=== PATIENT | male | born 1960 | race African-American/Black ===

== ENCOUNTER 2017-04-19 12:48 | Inpatient (IN) | payer OTHER ==
[~2017-04-19] VITALS: Ht 177.8 cm; Wt 95.3 kg
[~2017-04-19 12:48] MED LIST: DIVA500E13 PO; LEVEMIR SUBQ; METF500T4 PO; SYN.05 PO
[2017-04-19 13:31] VITALS: BP 140/79
[2017-04-19] MEDS ORDERED: NACL 0.9% 1,000 ML IV SCH (13:38)
[2017-04-19 13:57] LABS: BASOPHILS # (AUTO) 0.1 K/uL (0.00-0.22); EOSINOPHILS # (AUTO) 0.1 K/uL (0-0.4); EOSINOPHILS % (AUTO) 1.6 % (0.0-4.0); HEMATOCRIT 44.3 % (36-52); HEMOGLOBIN 14.4 g/dL (12.0-18.0); LYMPHOCYTES # (AUTO) 1.2 K/uL (2.0-11.5); LYMPHOCYTES % (AUTO) 15.5 % (20.5-51.1); MEAN CORPUSCULAR HEMOGLOBIN 27 pg (27-31); MEAN CORPUSCULAR HGB CONC 32 g/dL (33-37); MEAN CORPUSCULAR VOLUME 82 fL (80-94); MONOCYTES # (AUTO) 1.1 K/uL (0.8-1.0); MONOCYTES % (AUTO) 14.4 % (1.7-9.3); NEUTROPHILS # (AUTO) 5.4 K/uL (1.8-7.7); NEUTROPHILS % (AUTO) 67.5 % (42.2-75.2); PLATELET COUNT (AUTO) 249 K/uL (140-450); RED BLOOD CELL COUNT(AUTO) 5.41 MIL/uL (4.20-6.10); RED CELL DISTRIBUTION WIDTH 14.6 % (11.6-13.7); WHITE BLOOD COUNT (AUTO) 7.9 K/uL (4.8-10.8)
[2017-04-19 14:10] LABS: ANION GAP 13.3 (8-16); CALCIUM 9.4 mg/dL (8.5-10.1); CARBON DIOXIDE 27.8 mmol/L (21-32); CREATININE 1.5 mg/dL (0.7-1.3); POTASSIUM 4.1 mmol/L (3.5-5.1)
[2017-04-19 14:11] LABS: AMYLASE 49 U/L (25-115); LIPASE 129 U/L (73-393)
[2017-04-19 14:18] LABS: TOTAL BILIRUBIN 0.5 mg/dL (0.0-1.0)
[2017-04-19 14:21] LABS: INR 1.1 (0.8-1.2); PARTIAL THROMBOPLASTIN TIME 31.2 secs (22-35.6); PROTHROMBIN TIME 11.1 secs (10.8-13.4)
--- NOTE | 2017-04-19 16:05 | NUR ---
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 ER X 2 DAYS AGO RX DOXYCYCLINE 100MG BID HX---PARANOIA SCHIZOPHRENIA, DM, RX---GLIPIZIDE 10MG BID, LEVOTHYROXINE 50MCG AM, QUETIAPINE 20MG TID, DEPAKOTE 500MG TID, CLONAZEPAM 0.5MG TID, METFORMIN 500MG TID, ZOLPIDEM 5MG, ;. DENIES N/V/D; SKIN IS PINK/WARM/DRY; AAOX4 WHEEL CHAIR ASSISTED; LUNGS CLEAR BL; HR EVEN AND REGULAR; PT DENIES ANY FEVER, CP, SOB, OR COUGH AT THIS TIME; PATIENT STATES PAIN OF 9/10 AT THIS TIME; VSS; PATIENT POSITIONED FOR COMFORT; HOB ELEVATED; BEDRAILS UP X2; BED DOWN. ER MD MADE AWARE OF PT STATUS.
[2017-04-19 16:39] LABS: APPEARANCE,URINE CLEAR (CLEAR); BILIRUBIN,URINE NEGATIVE (NEGATIVE); BLOOD, URINE NEGATIVE (NEGATIVE); COLOR,URINE ORANGE (YELLOW); LEUKOCYTE ESTERASE ,URINE NEGATIVE (NEGATIVE); NITRITE, URINE NEGATIVE (NEGATIVE); PROTEIN,URINE 1+ (NEGATIVE); UGLUCOSE NEGATIVE (NEGATIVE)
[2017-04-19 16:48] LABS: BACTERIA,URINE 1-9 (FEW) /HPF (None Seen); RBC,URINE 0-5 (RARE) /HPF (0-5); SQUAMOUS EPITHELIAL CELL,UR 0-3 (FEW) /LPF (0-3 (FEW)); URINE AMORPHOUS URATE 1+ /HPF (None Seen)
[2017-04-19] MEDS ORDERED: cefTRIAXone 2,000 MG in DEXTROSE 5% 100 ML IV ONE (17:15)
[2017-04-19 17:33] LABS: LACTIC ACID 1.8 mmol/L (0.4-2.0)
[2017-04-19] MEDS ORDERED: cefTRIAXone 2,000 MG VIAL ONE (17:35)
--- NOTE | 2017-04-19 18:19 | NUR ---
PT TAKEN OFF THE UNIT FOR CT OF THE CHEST WITH CONTRAST VIA GURNEY BY [employer]
[2017-04-19] MEDS ORDERED: ACETAMINOPHEN 325 MG TAB PO PRN (18:40)
[2017-04-19] MEDS: DEXT 5% /NACL 0.9% 1,000 ML IV SCH (18:40)
[2017-04-19] MEDS ORDERED: ONDANSETRON 4 MG/2 ML VIAL IVP PRN (18:40)
[2017-04-19] MEDS ORDERED: HYDROcodone/APAP 5/325 MG 1 TAB TAB PO PRN (18:40)
[2017-04-19] MEDS ORDERED: DEXTROSE 50% 50 ML SYR IVP PRN (18:40)
[2017-04-19] MEDS ORDERED: LORazepam 2 MG/ML VIAL IVP PRN (18:40)
--- NOTE | 2017-04-19 19:25 | NUR ---
REPORT GIVEN TO SHMUEL ARAYA FOR CONTINUATION OF CARE
--- NOTE | 2017-04-19 19:57 | NUR ---
Patient will be admitted to care of DR CORREIA. Admited to TELE. Will go to room 106B. Belongings list completed. Report to SHMUEL HERNÁNDEZ.
--- NOTE | 2017-04-19 20:26 | NUR ---
PT ON UNIT FROM ER. PT RESTING IN BED. NO S/S OF ACUTE DISTRESS. AAOX4. PT DENIES PAIN. IV SITE PATENT AND INTACT. TELE IN PLACE. PT ORIENTED TO ROOM. CALL LIGHT WITHIN REACH. SAFETY MEASURES ENSURED. WILL CONTINUE TO MONITOR.
[2017-04-19 20:30] VITALS: BP 142/79
--- NOTE | 2017-04-19 20:31 | NUR ---
LABELED SPUTUM COLLECTION CUP LEFT AT PATIENTS BEDSIDE. INSTRUCTED PATIENT WHEN HE COUGHS UP PHLEGM TO PUT IT INTO CUP AND NOTIFY NURSE
[2017-04-19] MEDS ORDERED: PNEUMOCOCCAL VACCINE 23 MCG/0.5 ML VIAL IMVAC SCH (20:45)
--- NOTE | 2017-04-19 21:05 | NUR ---
RECEIVED REPORTS FROM SHMUEL HERNÁNDEZ, PATIENT IS SLEEPING IN BED, RESPIRATION EVEN AND UNLABORED, NO S/S OF ACUTE DISTRESS NOTED, IV PATENT AND INTACT, INFUSING D5NS AT 100ML/HR, CALL LIGHT WITH REACH, SIDE RAIL UP X2, BED AT LOWEST POSITION, WILL CONTINUE TO MONITOR.
[2017-04-19] MEDS: INSULIN LISPRO SLIDING SCALE 100 UNITS/ML VIAL SUBQ PRN (21:11)
[2017-04-19] MEDS: BLOOD GLUCOSE MONITORING 1 DEV DEV FS SCH (21:11)
--- NOTE | 2017-04-19 23:55 | NUR ---
PATIENT RESTING IN BED WATCHING TV. VITAL SIGNS TAKEN, STABLE. NO S/S OF ACUTE DISTRESS NOTED, RESPIRATION EVEN AND 02 SAT 92% ON ROOM AIR. EDUCATED PATIENT ABOUT THE SPUTUM COLLECTION, PATIENT VERBALIZED UNDERSTANDING. CALL LIGHT WITHIN REACH, SAFETY MEASURE ENSURED, WILL CONTINUE TO MONITOR.
[2017-04-20] VITALS: BP 139/78
--- NOTE | 2017-04-20 00:33 | NUR ---
REPORTS GIVEN TO CHARGE NURSE DEBBIE, PATIENT IS IN STABLE CONDITION.
--- NOTE | 2017-04-20 00:35 | NUR ---
RECEIVED REPORT.PT IS IN STABLE CONDITION W/STABLE VS.IVF IN PROGRESS.TELE SHOWING SR.DENIED ANY PAIN AND/OR DISCOMFORT AT THIS TIME.WILL CONTINUE MONITORING.
[2017-04-20 04:00] VITALS: BP 135/77
--- NOTE | 2017-04-20 04:00 | NUR ---
SLEEPING.NO S/S OF ANY DISTRESS NOTED.HR IS SR.VS STABLE.
[2017-04-20] MEDS: BLOOD GLUCOSE MONITORING 1 DEV DEV FS SCH ×4 (06:00→21:00)
[2017-04-20] MEDS: LEVOTHYROXINE 0.05 MG TAB PO SCH (06:15)
[2017-04-20 06:21] LABS: HEMATOCRIT 41.4 % (36-52); HEMOGLOBIN 13.5 g/dL (12.0-18.0); MEAN CORPUSCULAR HEMOGLOBIN 27 pg (27-31); MEAN CORPUSCULAR HGB CONC 33 g/dL (33-37); MEAN CORPUSCULAR VOLUME 83 fL (80-94); PLATELET COUNT (AUTO) 230 K/uL (140-450); RED BLOOD CELL COUNT(AUTO) 4.99 MIL/uL (4.20-6.10); RED CELL DISTRIBUTION WIDTH 15.3 % (11.6-13.7); WHITE BLOOD COUNT (AUTO) 6.8 K/uL (4.8-10.8)
--- NOTE | 2017-04-20 06:29 | NUR ---
SLEPT WELL.XT=489. WILL COVER PER SLIDING SCALE.NO C/O PAIN NOW.
--- NOTE | 2017-04-20 06:30 | NUR ---
REPORT GIVEN TO JORDIN MI.
--- NOTE | 2017-04-20 06:46 | NUR ---
Patient's Plan of Care was discussed and reviewed with MEND WORKER: VIKTOR Anderson
[2017-04-20 06:51] LABS: CALCIUM 8.5 mg/dL (8.5-10.1); CARBON DIOXIDE 29.1 mmol/L (21-32); CREATININE 1.1 mg/dL (0.7-1.3); POTASSIUM 4.1 mmol/L (3.5-5.1)
[2017-04-20 07:00] LABS: MAGNESIUM 2.2 mg/dL (1.8-2.4)
--- NOTE | 2017-04-20 07:18 | NUR ---
ASSUMED CONTINUITY OF CARE. NO SIGNS AND SYMPTOMS OF ACUTE DISTRESS NOTED. INITIAL ASSESSMENT DONE. KEEP COMFORTABLE ON BED. EXPLAINED DIAGNOSIS, PLAN OF CARE, PAIN MANAGEMENT TEACHING, USE OF CALL LIGHT/BED/TV/BATHROOM. VERBALIZED UNDERSTANDING. FALL PRECAUTION APPLIED. CALL LIGHT WITHIN REACH.
[2017-04-20 07:43] LABS: BAND % (MANUAL) 20 % (0-8); EOSINOPHILS % (MANUAL) 4 % (0-4); LYMPHOCYTES % (MANUAL) 31 % (20-46); MONOCYTES % (MANUAL) 15 % (5-12); NEUTROPHILS % (MANUAL) 30 (43-65)
[2017-04-20 08:00] VITALS: BP 140/90
--- NOTE | 2017-04-20 08:20 | NUR ---
PT. CAME FOR PT. PT. EVAL AND TREATMENT.
[2017-04-20] MEDS: metFORMIN 500 MG TAB PO SCH ×3 (08:59→17:22)
[2017-04-20] MEDS: DIVALPROEX 500 MG TABEC PO SCH ×3 (08:59→17:22)
--- NOTE | 2017-04-20 09:33 | NUR ---
PATIENT HAS BEEN SCREENED AND CATEGORIZED MODERATE NUTRITION RISK. PATIENT WILL BE SEEN WITHIN 3-5 DAYS OF ADMISSION. 04/22/17-04/24/[address]
[2017-04-20] MEDS: INSULIN DETEMIR 100 UNITS/ML 10 ML VIAL SUBQ SCH (09:44)
--- NOTE | 2017-04-20 11:00 | NUR ---
WENT TO BATHROOM WITHOUT ASSISTANCE. TOLERATED WELL. KEEP FREE FROM INJURY.
[2017-04-20] MEDS: INSULIN LISPRO SLIDING SCALE 100 UNITS/ML VIAL SUBQ PRN (11:49)
[2017-04-20 12:00] VITALS: BP 132/80
[2017-04-20] MEDS: DEXT 5% /NACL 0.9% 1,000 ML IV SCH ×2 (13:02→14:40)
--- NOTE | 2017-04-20 15:24 | NUR ---
SEEN WATCHING TV AT THIS TIME. NO DISCOMFORT NOTICED. CALL LIGHT WITHIN REACH.
[2017-04-20 16:00] VITALS: BP 144/88
[2017-04-20] MEDS ORDERED: AZITHROMYCIN 500 MG in DEXTROSE 5% 250 ML IV SCH (17:00)
--- NOTE | 2017-04-20 19:13 | NUR ---
BEDSIDE REPORT GIVEN TO IMMANUEL WALLACE -SHMUEL. IVF INFUSING WELL. IN STABLE CONDITION.
--- NOTE | 2017-04-20 19:30 | NUR ---
RECEIVED REPORT FROM DAY RN AT BEDSIDE, PATIENT IS AAOX3 ON ROOM AIR, NO SOB OR SIGN OF DISTRESS AT THIS TIME, IV TO LEFT AC PATENT AND INTACT, SKIN INTACT, PT DENIES PAIN AT THIS TIME, DISCUSSED PLAN OF CARE WITH PATIENT, PT VERBALIZED UNDERSTANDING, SAFETY MEASURES CHECKED, CALL LIGHT WITHIN REACH. WILL CONTINUE TO MONITOR.
[2017-04-20 20:00] VITALS: BP 139/78
--- NOTE | 2017-04-20 21:45 | NUR ---
BS CHECKED 114, NO COVERAGE NEEDED AT THIS TIME, CALL LIGHT WITHIN REACH. WILL CONTINUE TO MONITOR.
[2017-04-21] VITALS: BP 139/77
--- NOTE | 2017-04-21 00:20 | NUR ---
VITAL SIGNS STABLE, NO SOB OR SIGN OF DISTRESS AT THIS TIME, PT RESTING IN BED, CALL LIGHT WITHIN REACH. WILL CONTINUE TO MONITOR.
[2017-04-21] MEDS: DEXT 5% /NACL 0.9% 1,000 ML IV SCH ×2 (00:45→12:09)
--- NOTE | 2017-04-21 02:00 | NUR ---
PT SLEEPING, NO SOB OR SIGN OF DISTRESS AT THIS TIME, CALL LIGHT WITHIN REACH. WILL CONTINUE TO MONITOR.
[2017-04-21 04:00] VITALS: BP 145/76
--- NOTE | 2017-04-21 04:05 | NUR ---
VITAL SIGNS STABLE, NO SOB OR SIGN OF DISTRESS, CALL LIGHT WITHIN REACH. WILL CONTINUE TO MONITOR.
[2017-04-21] MEDS: LEVOTHYROXINE 0.05 MG TAB PO SCH (06:35)
[2017-04-21] MEDS: BLOOD GLUCOSE MONITORING 1 DEV DEV FS SCH ×2 (06:36→11:37)
[2017-04-21 07:05] LABS: HEMOGLOBIN 12.7 g/dL (12.0-18.0); MEAN CORPUSCULAR HEMOGLOBIN 27 pg (27-31); MEAN CORPUSCULAR HGB CONC 33 g/dL (33-37); MEAN CORPUSCULAR VOLUME 83 fL (80-94); PLATELET COUNT (AUTO) 251 K/uL (140-450); RED BLOOD CELL COUNT(AUTO) 4.71 MIL/uL (4.20-6.10); RED CELL DISTRIBUTION WIDTH 15.1 % (11.6-13.7); WHITE BLOOD COUNT (AUTO) 7.1 K/uL (4.8-10.8)
[2017-04-21 07:24] LABS: ANION GAP 11.5 (8-16); CALCIUM 8.6 mg/dL (8.5-10.1); CARBON DIOXIDE 28.1 mmol/L (21-32); CREATININE 0.9 mg/dL (0.7-1.3); POTASSIUM 3.6 mmol/L (3.5-5.1)
--- NOTE | 2017-04-21 07:24 | NUR ---
ENDORSED PT TO DAY RN AT BEDSIDE, PT IN STABLE CONDITION
--- NOTE | 2017-04-21 07:25 | NUR ---
RECEIVED PT IN BED. AWAKE, ALERT ORIENTEDX3. NO SOB NOTED. DENIES ANY PAIN OR DISCOMFORT AT THIS TIME. POSITIVE BOWEL SOUNDS NOTED ON FOUR [employer]RANTS. PT AMBULATORY WITH [facility]P. SAFETY PRECAUTION IN PLACE. CALL LIGHT WITHIN REACH.
[2017-04-21 07:32] LABS: MAGNESIUM 1.9 mg/dL (1.8-2.4); PHOSPHORUS 3.4 mg/dL (2.5-4.9)
[2017-04-21 08:00] VITALS: BP 135/92
[2017-04-21] MEDS: DIVALPROEX 500 MG TABEC PO SCH ×2 (08:16→12:09)
[2017-04-21] MEDS: INSULIN DETEMIR 100 UNITS/ML 10 ML VIAL SUBQ SCH (08:17)
[2017-04-21] MEDS: metFORMIN 500 MG TAB PO SCH ×2 (08:17→12:09)
[2017-04-21 08:58] LABS: BAND % (MANUAL) 9 % (0-8); EOSINOPHILS % (MANUAL) 1 % (0-4); LYMPHOCYTES % (MANUAL) 32 % (20-46); MONOCYTES % (MANUAL) 12 % (5-12); NEUTROPHILS % (MANUAL) 46 (43-65)
--- NOTE | 2017-04-21 10:00 | NUR ---
CALLED DR. CORREIA MADE AWARE OF SPUTUM CULTURE CONTAMINATED. WITH NEW ORDERS MADE AND CARRIED OUT TORB.
--- NOTE | 2017-04-21 11:32 | NUR ---
SS NOTE: I SPOKE WITH PT BEDSIDE TO CONFIRM HIS DISCHARGE PLAN. HE STATED THAT HE WOULD LIKE TO RETURN TO [facility] UPON DISCHARGE.
[2017-04-21 12:00] VITALS: BP 143/89
--- NOTE | 2017-04-21 15:10 | NUR ---
PT WANTED TO GO BACK TO [facility] WITHOUT THE ATTENDING PHYSICIAN SEEING HIM. PT SIGNED AMA, ALANNA HERNÁNDEZ RN. EXPLAINED RISKS. CALLED [facility]. SAID THEY WILL COME AND DE ICER PT. DR. CORREIA MADE AWARE. ARM BAND REMOVED. IV CANNULA REMOVED AND INTACT. PT LEFT HOSPITAL AGAINST MEDICAL ADVICE.
== END 2017-04-21 15:10 | disposition left against medical advice (07) | DRG 871 ==
LOC: MED 13:10 → MTU 18:40
PROVIDERS: ADMIT Preventive Medicine Preventive Medicine/Occupational Environmental Medicine; ATTEND Preventive Medicine Preventive Medicine/Occupational Environmental Medicine
DX: A41.9 Sepsis, unspecified organism (principal); J18.1 Lobar pneumonia, unspecified organism; E87.0 Hyperosmolality and hypernatremia; F20.0 Paranoid schizophrenia; E11.65 Type 2 diabetes mellitus with hyperglycemia; J45.909 Unspecified asthma, uncomplicated; G40.909 Epilepsy, unspecified, not intractable, without status epilepticus; E03.9 Hypothyroidism, unspecified; Z60.2 Problems related to living alone; N28.9 Disorder of kidney and ureter, unspecified; M25.511 Pain in right shoulder; Z53.21 Procedure and treatment not carried out due to patient leaving prior to being seen by health care provider; R55 Syncope and collapse; Z79.84 Long term (current) use of oral hypoglycemic drugs; Z79.899 Other long term (current) drug therapy; F17.200 Nicotine dependence, unspecified, uncomplicated; R74.0 Nonspecific elevation of levels of transaminase and lactic acid dehydrogenase [LDH]
CPT/HCPCS: 36415; 70450; 71010; 71260; 73030; 76700; 80048; 80053; 81001; 82150; 82553; 82948; 83605; 83690; 83735; 83880; 84100; 84484; 85025; 85379; 85610; 85651; 85730; 86140; 87040; 87081; 87205; 93005; 96360; 99285; J0456; J0696; J1815; J7030; J7042; J7060; Q0092; Q9967